=== PATIENT | female | born 1925 | race Caucasian/White ===

== ENCOUNTER 2017-01-07 10:59 | Inpatient (IN) ==
[2017-01-07] MEDS ORDERED: NS 2,000 ML IV ONE (12:16)
[2017-01-07 13:07] LABS: BASO% 0.3 % (0.0-0.8); EOS# 0.09 X1000 (0.0-0.7); EOS% 0.8 % (0.0-10.0); HEMATOCRIT 35.7 % (37.0-47.0); HEMOGLOBIN 11.9 g/dL (12.0-16.0); IMM GRAN# 0.21 X1000 (0.0-0.04); IMM GRAN% 1.8 % (0.0-0.5); LYMPH# 0.36 X1000 (1.2-3.4); MANUAL DIFF NEEDED? NO; MCH 28.1 PG (27-31); MCHC 33.3 g/dL (33-37); MCV 84.2 FL (81-99); MONO# 0.55 X1000 (0.11-0.59); MONO% 4.6 % (1.7-9.3); NEUT% 89.5 % (42.2-75.2); PLT 174 X1000 (130-400); RBC 4.24 XMIL (4.2-5.4)
[2017-01-07 13:31] LABS: ALBUMIN 3.5 g/dL (3.5-5.0); CALCIUM 8.6 mg/dL (8.8-10.2); POTASSIUM 4.5 mmol/L (3.5-5.1); TOTAL BILIRUBIN 0.16 mg/dL (0.20-1.00)
--- NOTE | 2017-01-07 13:31 | PROVIDER DOCUMENTATION ---
This chart was entered by Laisha Fernandes Scribe, acting as scribe for Vladislav Murdock MD. HPI-General Adult - General Chief Complaint: Weakness Stated Complaint: WEAKNESS,NAUSEA,NOT EATEN IN 2 DAYS Time Seen by Provider: 01/07/17 11:56 Source: patient Allergies/Adverse Reactions: Patient Allergies Allergy/AdvReac Type Severity Reaction Status Date / Time Sulfa (Sulfonamide Allergy ITCHING Verified 01/07/17 13:26 Antibiotics) Home Medications: Home Medication List Medication Instructions Recorded Confirmed Last Taken Type Aspirin 81 mg PO QAM 09/21/14 01/07/17 01/07/17 08:00 History Mirtazapine [Remeron] 30 mg PO QHS 09/21/14 01/07/17 01/06/17 08:00 History Cholecalciferol (Vitamin D3) 50,000 unit PO DIRECTED 04/09/15 01/07/17 08:00 History [Vitamin D3] Melatonin/Pyridoxine HCl (B6) 5 mg PO QHS 04/09/15 01/07/17 01/06/17 21:00 History [Melatonin 5 mg Tablet] Alprazolam [Xanax] 0.25 mg PO HS #0 tablet 04/15/15 01/07/17 01/06/17 21:00 Rx Nebivolol HCl [Bystolic] 5 mg PO QAM 08/18/15 01/07/17 01/06/17 08:00 History Acetaminophen [Tylenol] 500 mg PO Q4H PRN PRN #0 tablet 02/03/16 01/07/17 Unknown Rx Collagenase Clostridium Oint 0.5 inch TOP DAILY #0 oint 02/03/16 01/07/17 Unknown Rx [Santyl Oint] Sodium Bicarbonate 650 mg PO BID #0 tablet 02/03/16 01/07/17 01/06/17 08:00 Rx Loperamide [Imodium] 2 mg PO TID CC #90 capsule 03/26/16 01/07/17 Unknown Rx Benzonatate [Tessalon Perle] 100 mg PO PRN PRN 01/07/17 01/07/17 Unknown History Levofloxacin [Levofloxacin] 500 mg PO BID 01/07/17 01/07/17 01/06/17 20:00 History - History of Present Illness -Gen Adult Nature of Presenting Problems: Pt is 89 y/o F presents to the ED with generalized weakness and loss of appetite. Pt's family states Pt has dementia. Pt's family states Pt has not ate in 2 days. Pt's family states Pt was put on Levaquin for F by PCP. Pt states V since starting med. Location of Pain/Injury: reports: generalized Pain Radiation: reports: no radiation Quality of Pain: reports: none Severity: reports: mild Onset/Duration: reports: 2 days ago Timing: reports: still present Context/Activities at Onset: reports: light activity Modifying Factors: improves with: nothing Associated Symptoms: reports: loss of appetite, vomiting, weakness. denies: anxiety, arm pain, back/neck pain, chest pain, constipation, cough, diaphoresis , diarrhea, dizziness, EENT symptoms, fatigue, fever/chills, genitourinary problems, headaches, heartburn, joint pain, malaise, muscle aches, sinus congestion/drainage, nausea, rash, seizure, shortness of breath, sensory/motor loss, pain with inspiration, swelling/mass in abdomen, syncope, trouble walking Similar Symptoms Previously?: Yes Recently seen or treated by another doctor?: No Review of Systems - Adult - REVIEW OF SYSTEMS - ADULT Constitutional: reports: no symptoms reported Eyes: reports: no symptoms reported Ears, Nose, Mouth & Throat: reports: no symptoms reported Cardiovascular: reports: no symptoms reported Respiratory: reports: no symptoms reported Gastrointestinal: reports: vomiting. denies: abdominal pain, diarrhea, nausea Genitourinary: reports: no symptoms reported Musculoskeletal: reports: muscle weakness. denies: bone pain, joint pain, neck pain Integumentary: reports: no symptoms reported Neurological: reports: no symptoms reported Psychiatric: reports: no symptoms reported Endocrine: reports: no symptoms reported Hematologic/Lymphatic: reports: no symptoms reported Allergic/Immunologic: reports: no symptoms reported All Other Systems: Reviewed and Negative Past History - Adult - PAST MEDICAL HISTORY-ADULT Review of Records: reports: Nursing Assessment Review, Medications Reviewed, Social history reviewed & non-contributory. Major Childhood Illnesses: reports: denies history Cardiovascular: reports: cardiac disease, HTN, hyperlipidemia Respiratory: reports: denies history Gastrointestinal: reports: GI bleed Obstetrical/Gynecological: reports: uterine/ovarian cancer Genitourinary: reports: kidney disease Musculoskeletal: reports: denies history Neurological: reports: dementia Endocrine/Immune: reports: denies history Other Conditions: reports: denies history - PRIOR SURGERIES/PROCEDURES Surgical/Procedure History: reports: appendectomy, cholecystectomy, hysterectomy , other (exploratory lap) - IMMUNIZATION STATUS Childhood Immunizations: See Nurse Assessment Flu Vaccine: See Nurse Assessment - FAMILY HISTORY Family History: reviewed, not pertinent - SOCIAL HISTORY Smoking: denies Substance Use: denies Living Situation: family Physical Exam-General - PHYSICAL EXAM-ADULT Initial Vital Signs Reviewed: Yes - CONSTITUTIONAL General Appearance: appears well, alert, no apparent distress - EYES Eyes: PERRL/EOMI, pink conjunctivae - HEAD, EARS, NOSE, MOUTH & THROAT HENMT: normocephalic/atraumatic, moist mucous membranes, normal ENT inspection - NECK Neck: non-tender, full range of motion, supple, normal inspection - RESPIRATORY Respiratory: chest non-tender, lungs clear, normal breath sounds - CARDIOVASCULAR Cardiovascular: normal peripheral pulses, regular rate, rhythm - GASTROINTESTINAL (ABDOMEN) Abdominal Exam: normal bowel sounds, non tender, soft - LYMPHATIC Lymphatic: no adenopathy - MUSCULOSKELETAL Back Exam: normal inspection, no CVA tenderness, no vertebral tenderness Extremity: normal range of motion, non-tender, normal gait, normal inspection - SKIN Integumentary: normal color, normal turgor, warm/dry - NEUROLOGIC Neurologic: grossly normal - PSYCHIATRIC Psych/Mental Status: normal mood/affect Progress - PLAN OF CARE/RESULTS Progress/Plan/Lab Results: Vital Signs - 8 hr 01/07/17 11:02 Temperature 98.4 F Pulse Rate 84 Respiratory Rate 16 Blood Pressure 97/50 O2 Sat by Pulse Oximetry 96 Orders Category Date Time Status CBC WITH ELECTRONIC DIFF [HEME] Stat Lab 01/07/17 12:16 Ordered CMP [COMPREHENSIVE METABOLIC PANEL] [CHEM] Stat Lab 01/07/17 12:16 Ordered UA NIMS W/REFLEX CULT [URINALYSIS] Stat Lab 01/07/17 12:16 Uncollected 0.9% Sodium Chloride Inj [Ns] 2,000 ml Med 01/07/17 12:16 Active IV 999 mls/hr Result Diagrams: 01/07/17 12:55 01/07/17 12:55 - REASSESSMENT Reassessment #1 Status: unchanged (discussed decision to admit with her daughter) - CONSULTS/PCP/HOSPITALIST Notification #1 *Consult/PCP/Hospitalist*: Dr. Reyes Time Discussed: 14:59 Reason/Comments: Dr. Murdock consults with Dr. Reyes about admit of PT Consult Disposition: Admit Departure - Departure Date of Disposition Decision: 01/07/17 Time of Disposition Decision: 14:59 DIAGNOSIS: Renal insufficiency, Pyelonephritis Dementia Qualifiers: Dementia type: Lewy body dementia Dementia behavioral disturbance: without behavioral disturbance Qualified Code(s): G31.83 - Dementia with Lewy bodies; F02.80 - Dementia in other diseases classified elsewhere without behavioral disturbance Disposition: ADMITTED INPATIENT 09 Certified Medical Emergency: Emergent Condition: Stable Referrals and Follow-Ups: Kaleb Rodriguez MD [Primary Care Provider] - - Critical Care Note This patient required my direct & personal management of CC.: No This chart was documented by the indicated scribe, (Laisha Fernandes Scribe) and accurately reflects the services I performed and decisions made by me, Vladislav Murdock MD, as attested by the provider's signature.
[2017-01-07 13:52] LABS: URINE MICRO REVIEW NEEDED? NO; URINE SOURCE CATH
[2017-01-07 14:07] LABS: UR EPITHELIAL CELLS <10 /HPF (<10); URINE BACTERIA 4+ /HPF; URINE RBC <10 /HPF (<10); URINE WBC TNTC /HPF (<10)
[2017-01-07 14:15] LABS: BILIRUBIN URINE NEGATIVE (NEGATIVE); BLOOD URINE TRACE (NEGATIVE); COLOR YELLOW; GLUCOSE URINE NEGATIVE (NEGATIVE); SP GRAVITY URINE 1.012; TURBIDITY URINE CLEAR (CLEAR)
[2017-01-07 14:16] LABS: LEUKOCYTES URINE LARGE (NEGATIVE); NITRITE URINE NEGATIVE (NEGATIVE); PROTEIN URINE 30 mg/dL (NEGATIVE); URINE CULTURE NEEDED? YES; UROBILINOGEN URINE NORMAL (NORMAL)
[2017-01-07] MEDS ORDERED: ROCEPHIN 1 GM/NS 1 GM/50 ML IVPB IV ONE (14:57)
[2017-01-07] MEDS ORDERED: NS 1,000 ML IV ONE (14:58)
[2017-01-07 18:36] LABS: CALCIUM 7.5 mg/dL (8.8-10.2); POTASSIUM 3.8 mmol/L (3.5-5.1)
[2017-01-07] MEDS ORDERED: TESSALON PO PRN (19:20)
[2017-01-07] MEDS ORDERED: TYLENOL PO PRN (19:20)
[2017-01-07] MEDS ORDERED: NS 1,000 ML ONE (20:04)
--- NOTE | 2017-01-07 20:51 | Diag Imaging Result Doc PS360 ---
EXAM: CHEST-PORTABLE HISTORY: Shortness of breath TECHNIQUE: COMPARISON: 03/21/2016 FINDINGS: The lungs are well expanded. There is an infiltrate in the right upper lobe. The heart is not enlarged. The vessels are not distended. No pleural effusions identified. IMPRESSION: Right upper lobe pneumonia Electronically signed by Edilson Estrella 01/07/2017 8:49 PM
[2017-01-07] MEDS: CYMBALTA PO SCH (21:05)
[2017-01-07] MEDS: NS 1,000 ML IV SCH (21:05)
[2017-01-07] MEDS: CLOZARIL PO SCH (21:05)
--- NOTE | 2017-01-07 22:31 | HISTORY AND PHYSICAL ---
PRIMARY CARE PHYSICIAN: Dr. Kaleb Rodriguez. CHIEF COMPLAINT: Profound weakness. HISTORY OF PRESENT ILLNESS: An 89-year-old white female with a complicated past medical history presents for evaluation of above-mentioned symptoms. Current history of present illness began on SaturdayDecember 21. At that time patient developed significant weakness. The patient denies additional symptoms at that time but by Saturday developed a low-grade fever of 100.0. On Saturday patient developed a "wet cough." As patient's condition was deteriorating, she was seen by Dr. Rodriguez on SaturdayJanuary 01. At that time patient was diagnosed with a urinary tract infection and bronchitis. Prescription of levofloxacin was arranged. Initially patient's overall condition stabilized. Unfortunately, by Saturday patient developed nausea, vomiting, and decreased p.o. intake. She was noted to have intermittent rigors and profound weakness. Over the course of the weekend patient's overall condition continued to deteriorate. Because of her deteriorating condition, patient's family contacted Dr. Rodriguez's office this morning. Patient was referred to the emergency department. Upon arrival, a urinary tract infection was identified. Upon evaluation, patient was found to have a urinary tract infection as well as acute renal failure. Patient will be admitted to the hospital for full evaluation and management of these conditions. Of note, the patient's coughing condition has improved but not completely resolved. Prior to the patient's acute illness she walked independently with a walker. Her activity level and interaction was significantly above her current condition. PAST MEDICAL HISTORY: 1. Chronic kidney disease. 2. Lewy body dementia. 3. History of recurrent urinary tract infections. 4. Osteoporosis. 5. History of a diverticular bleed requiring total colectomy and ileostomy in September 2014. 6. Right hip fracture in early 2014 status post intertrochanteric fixation. 7. Hypertension. 8. Insomnia. 9. Ovarian cancer. CURRENT MEDICATIONS: 1. Acetaminophen 500 mg every 4 hours as needed. 2. Xanax 0.25 mg at bedtime. 3. Aspirin 81 mg daily. 4. Tessalon 100 mg 3 times daily as needed. 5. Clozaril 100 mg at bedtime. 6. Collagenase ointment daily. 7. Cymbalta 20 mg at bedtime. 8. Vitamin D2 50,000 units weekly. 9. Melatonin 5 mg at bedtime. 10. Remeron 15 mg at bedtime. 11. Bystolic 5 mg every morning. 12. Sodium bicarbonate 650 mg twice daily. ALLERGIES: Patient states she is allergic to sulfa which causes a rash. FAMILY HISTORY: Patient's mother passed in her 80s secondary to complications of chronic bronchitis. Patient's father passed in his 70s secondary to an unknown cause. SOCIAL HISTORY: Patient is a . She lived most of her life in the [place] but moved in with her daughter approximately 3 years ago. She denies tobacco, alcohol or illicit drug use. REVIEW OF SYSTEMS: A 12 point review of systems was performed. Pertinent positives and negatives noted in history present illness. PHYSICAL EXAMINATION: VITAL SIGNS: 97.7, heart rate 71, respirations 19, blood pressure is 112/59. GENERAL: Elderly, no acute distress. CARDIOVASCULAR: Regular rate and rhythm. No significant murmurs, rubs, or gallops. PULMONARY: Clear to auscultation bilaterally. ABDOMEN: Soft, nontender, nondistended. Positive bowel sounds. EXTREMITIES: Moves all extremities well. No significant clubbing, cyanosis, or edema. DERMATOLOGIC: Evaluation reveals no evidence of rash. LABORATORY DATA: White blood cell count 11.84, hemoglobin 11.9, hematocrit 35.7, platelet count is 174,000. Sodium 134, potassium 3.8, chloride 101, bicarb 20, BUN 18, creatinine 5.6, glucose 144, calcium 7.5. ASSESSMENT AND PLAN: 89-year-old white female with a complicated past medical history presents for evaluation of profound weakness. Full evaluation has revealed a right upper lobe pneumonia, urinary tract infection and acute on chronic kidney disease. The patient will be admitted to the hospital for full evaluation and management of each of these conditions. 1. Urinary tract infection-patient's urinalysis remains significantly abnormal. The patient has been treated with levofloxacin therapy without improvement. We will convert patient to Rocephin therapy. We will follow urine cultures. 2. Right upper lobe pneumonia-we will encourage incentive spirometry and aspiration precautions. We will start patient on Rocephin and azithromycin therapy. We will encourage incentive spirometry. We will follow patient's clinical course very closely. 3. Acute on chronic kidney disease-the patient's BUN creatinine are significantly elevated today. We will start patient on hydration as I suspect this is secondary to a prerenal state. If patient does not achieve significant improvement, we will consider a nephrology consultation. At this point, there is no indication for hemodialysis. 4. Hypertension-for now, we will continue patient's home medications. 5. Lewy body dementia-we will continue patient's current regimen as patient's family states she is under excellent control. 6. Profound weakness-at this point, the question is raised whether patient will be able to return home or will need rehabilitation at discharge. We will start physical therapy once patient is physically able. We will determine if further intervention is warranted. 7. Fluid, electrolytes, nutrition. Will monitor electrolytes. Normal saline at 75 mL an hour. Renal diet prophylaxis. Patient will be placed on SCDs. cc: Reginald Reyes MD
[2017-01-07] MEDS: REMERON PO SCH (22:54)
[2017-01-07] MEDS: MELATONIN PO SCH (22:54)
[2017-01-07] MEDS: XANAX PO SCH (22:55)
[2017-01-07] MEDS: ZITHROMAX 500 MG/NS 500 MG/250 ML IVPB IV SCH (23:03)
[2017-01-07] MEDS: SODIUM BICARBONATE PO SCH (23:03)
[2017-01-08 06:33] LABS: MANUAL DIFF NEEDED? NO
[2017-01-08 06:38] LABS: BASO% 0.6 % (0.0-0.8); EOS# 0.21 X1000 (0.0-0.7); EOS% 2.3 % (0.0-10.0); HEMATOCRIT 31.1 % (37.0-47.0); HEMOGLOBIN 10.1 g/dL (12.0-16.0); IMM GRAN# 0.18 X1000 (0.0-0.04); LYMPH# 0.92 X1000 (1.2-3.4); LYMPH% 10.1 % (20.5-51.1); MCHC 32.5 g/dL (33-37); MCV 86.1 FL (81-99); MONO% 6.6 % (1.7-9.3); MPV 9.1 FL (7.4-10.4); NEUT% 78.4 % (42.2-75.2); PLT 161 X1000 (130-400); RBC 3.61 XMIL (4.2-5.4)
[2017-01-08 07:25] LABS: ALBUMIN 2.8 g/dL (3.5-5.0); CALCIUM 7.8 mg/dL (8.8-10.2); POTASSIUM 3.7 mmol/L (3.5-5.1); TOTAL PROTEIN 5.5 g/dL (6.3-8.3)
[2017-01-08 07:37] LABS: TOTAL BILIRUBIN 0.11 mg/dL (0.20-1.00)
[2017-01-08] MEDS: BYSTOLIC PO SCH (08:23)
[2017-01-08] MEDS: ASPIRIN PO SCH (08:23)
[2017-01-08] MEDS: SANTYL OINT TOP SCH (08:23)
[2017-01-08] MEDS: SODIUM BICARBONATE PO SCH ×2 (08:23→20:19)
[2017-01-08] MEDS: NS 1,000 ML IV SCH (08:23)
[2017-01-08] MEDS: ROCEPHIN 1 GM/NS 1 GM/50 ML IVPB IV SCH (15:05)
[2017-01-08] MEDS: CYMBALTA PO SCH (20:19)
[2017-01-08] MEDS: CLOZARIL PO SCH (20:19)
[2017-01-08] MEDS: REMERON PO SCH (20:19)
[2017-01-08] MEDS: XANAX PO SCH (20:19)
[2017-01-08] MEDS: MELATONIN PO SCH (20:19)
--- NOTE | 2017-01-08 22:29 | PROGRESS NOTE ---
DATE: 01/08/2017 SUBJECTIVE: Overall, patient states she feels improved from yesterday. The patient's energy level is slowly improving. Her p.o. intake is minimal, but improved. Her cough has been intermittent. She denies significant shortness of breath. She denies fevers, chills, nausea, vomiting, or chest discomfort. OBJECTIVE: Vital signs: Temperature maximum 98.2 degrees, heart rate 61-90, respirations 16-20, blood pressure 109-138/46-59. General: Elderly, no acute distress. Cardiovascular: Regular rate and rhythm. No significant murmurs, rubs, or gallops. Pulmonary: Clear to auscultation bilaterally. Abdomen: Soft, nontender, nondistended. Positive bowel sounds. Extremities: Moves all extremities well. No significant clubbing, cyanosis, or edema. Dermatologic: Evaluation reveals no evidence of rash. LABORATORY DATA: White blood cell count 9.09, hemoglobin 10.1, hematocrit 31.1, platelet count 161,000. Sodium 138, potassium 3.7, chloride 107, bicarb 10, BUN 84, creatinine 5.1, glucose 100. Calcium 7.8, total bilirubin 0.11, total protein 5.5, albumin 2.8, alkaline phosphatase 75, AST 12, ALT 7. ASSESSMENT AND PLAN: 1. Urinary tract infection-the patient is currently being treated with Rocephin therapy. Urine culture is pending. We will follow this. 2. Right upper lobe pneumonia-we will continue patient on Rocephin and azithromycin therapy. We will encourage incentive spirometry and aspiration precautions. Clinically, patient is improving. 3. Acute on chronic kidney disease-patient's creatinine remains elevated above her baseline. She also is carrying gap acidosis, likely secondary to renal failure. We will continue hydration as this likely represents a prerenal state. We will follow this closely as well. Should patient condition not improve rapidly, we will consider Nephrology consultation. 4. Hypertension-patient's blood pressure is reasonably controlled on her current regimen. 5. Lewy body dementia-the patient's mentation is stable. We will continue her current regimen. 6. Profound weakness-physical therapy was initiated today. The patient likely will require rehabilitation at discharge. 7. Disposition-at this point, patient continues to require fci care in the hospital setting. We will plan discharge home once appropriate. cc: MD Kaleb Deluca MD
[2017-01-09] MEDS: ZITHROMAX 500 MG/NS 500 MG/250 ML IVPB IV SCH ×2 (00:08→23:32)
[2017-01-09] MEDS: NS 1,000 ML IV SCH ×3 (04:56→20:52)
[2017-01-09 06:35] LABS: MANUAL DIFF NEEDED? NO
[2017-01-09 06:40] LABS: BASO% 0.2 % (0.0-0.8); EOS# 0.17 X1000 (0.0-0.7); HEMATOCRIT 29.1 % (37.0-47.0); HEMOGLOBIN 9.5 g/dL (12.0-16.0); IMM GRAN% 1.2 % (0.0-0.5); LYMPH# 0.61 X1000 (1.2-3.4); LYMPH% 7.3 % (20.5-51.1); MCH 27.9 PG (27-31); MCHC 32.6 g/dL (33-37); MCV 85.3 FL (81-99); MONO# 0.65 X1000 (0.11-0.59); MONO% 7.8 % (1.7-9.3); MPV 8.9 FL (7.4-10.4); NEUT% 81.5 % (42.2-75.2); PLT 145 X1000 (130-400); RBC 3.41 XMIL (4.2-5.4)
[2017-01-09 07:11] LABS: ALBUMIN 2.5 g/dL (3.5-5.0); CALCIUM 7.6 mg/dL (8.8-10.2); POTASSIUM 3.2 mmol/L (3.5-5.1); TOTAL BILIRUBIN 0.13 mg/dL (0.20-1.00); TOTAL PROTEIN 5.3 g/dL (6.3-8.3)
[2017-01-09] MEDS: SODIUM BICARBONATE PO SCH ×2 (08:04→23:33)
[2017-01-09] MEDS: ASPIRIN PO SCH (08:04)
[2017-01-09] MEDS: SANTYL OINT TOP SCH (08:04)
[2017-01-09] MEDS: BYSTOLIC PO SCH (08:04)
[2017-01-09] MEDS: ROCEPHIN 1 GM/NS 1 GM/50 ML IVPB IV SCH (14:10)
[2017-01-09] MEDS ORDERED: KLOR-CON PO ONE (15:10)
[2017-01-09] MEDS ORDERED: SODIUM BICARBONATE PO ONE (15:13)
--- NOTE | 2017-01-09 15:30 | PROGRESS NOTE ---
DATE: 01/09/2017 SUBJECTIVE: Overall, patient continues to very slowly improve. The patient's mentation has returned to baseline. She complains of profound weakness and muscle tremors associated with ambulation/standing. Her p.o. intake is marginal. She denies significant shortness of breath, fevers, chills, nausea, vomiting, or chest discomfort. Thus far, she has tolerated IV fluids and antibiotics well. OBJECTIVE: Vital signs: T-max 98.5 degrees, heart rate 61-69, respirations 16- 20, blood pressure 98-130 over 48-77. General: Elderly, no acute distress. Cardiovascular: Regular rate and rhythm. No significant murmurs, rubs, or gallops. Pulmonary: Clear to auscultation bilaterally. Abdomen: Soft, nontender, nondistended. Positive bowel sounds. Extremities: Moves all extremities well. No significant clubbing or cyanosis. There is 1+ lower extremity edema bilaterally. Dermatology: Reveals no evidence of rash. LABORATORY DATA: White blood cell count 8.37, hemoglobin 9.5, hematocrit 29.1, platelet count 145,000. Sodium 141, potassium 3.2, chloride 112, bicarb 12, BUN 67, creatinine 4.1, glucose 118, calcium 7.6, total bilirubin 0.13, total protein 5.3, albumin 2.5, alkaline phosphatase 69, AST 12, ALT 7. ASSESSMENT AND PLAN: 1. Urinary tract infection - Urine culture revealed an E. coli sensitive to cephalosporins. We will continue Rocephin therapy. 2. Right upper lobe pneumonia - This was noted per chest x-ray. We will schedule a repeat chest x-ray in the morning. For now, we will continue Rocephin and azithromycin therapy. We will encourage incentive spirometry and practice aspiration precautions. Currently, patient is minimally symptomatic. 3. Acute on chronic kidney disease. This certainly is concerning, especially in the setting of a bicarbonate level of 12 and an anion gap of 17. Patient has achieved improvement in her creatinine from 5.6 to 4.1 since admission. For now, we will continue aggressive, but cautious hydration. We will increase her home dose of BID bicarbonate to TID. We will follow this. Should patient not achieve significant improvement over the course of the next 24-48 hours, we will consider nephrology consultation. 4. Hypertension - Patient's blood pressure remains reasonably controlled on her current regimen. 5. Lewy body dementia - At present time, symptoms are stable on her home medications. We will continue these. 6. Profound weakness - Physical therapy has been initiated. Unfortunately, her ambulatory ability is limited. Patient likely will require rehabilitation at discharge. 7. Anemia - The patient is noted to have a considerable anemia. This likely is partially secondary to hydration. We will check an anemia panel in the a.m. 8. Prophylaxis - Because of patient's extremely high fall risk and renal failure , I am hesitant to initiate Lovenox. We will continue SCDs while in bed. 9. Disposition - At this point, patient continues to require senior care care in a hospital setting. We will plan discharge home or rehab once appropriate. cc: MD Kaleb Deluca MD MTDD
[2017-01-09] MEDS: XANAX PO SCH (20:52)
[2017-01-09] MEDS: CYMBALTA PO SCH (20:52)
[2017-01-09] MEDS: MELATONIN PO SCH (20:52)
[2017-01-09] MEDS: REMERON PO SCH (20:52)
[2017-01-09] MEDS: CLOZARIL PO SCH (23:33)
[2017-01-10 06:42] LABS: MANUAL DIFF NEEDED? NO
[2017-01-10 06:53] LABS: BASO% 0.4 % (0.0-0.8); EOS# 0.21 X1000 (0.0-0.7); EOS% 2.7 % (0.0-10.0); HEMATOCRIT 28.4 % (37.0-47.0); HEMOGLOBIN 9.2 g/dL (12.0-16.0); IMM GRAN# 0.13 X1000 (0.0-0.04); IMM GRAN% 1.6 % (0.0-0.5); LYMPH# 0.67 X1000 (1.2-3.4); LYMPH% 8.5 % (20.5-51.1); MCH 27.9 PG (27-31); MCHC 32.4 g/dL (33-37); MCV 86.1 FL (81-99); MONO# 0.64 X1000 (0.11-0.59); MONO% 8.1 % (1.7-9.3); MPV 9.1 FL (7.4-10.4); NEUT% 78.7 % (42.2-75.2); PLT 143 X1000 (130-400)
[2017-01-10 07:23] LABS: ALBUMIN 2.5 g/dL (3.5-5.0); CALCIUM 7.7 mg/dL (8.8-10.2); POTASSIUM 3.5 mmol/L (3.5-5.1); TOTAL BILIRUBIN 0.12 mg/dL (0.20-1.00)
[2017-01-10 07:24] LABS: FERRITIN 310 ng/mL (13-150)
[2017-01-10] MEDS: ASPIRIN PO SCH (09:44)
[2017-01-10] MEDS: NS 1,000 ML IV SCH (09:44)
[2017-01-10] MEDS: SODIUM BICARBONATE PO SCH ×3 (09:44→16:41)
[2017-01-10] MEDS: BYSTOLIC PO SCH (09:44)
[2017-01-10] MEDS: SANTYL OINT TOP SCH (09:45)
[2017-01-10] MEDS: FOLIC ACID PO SCH (09:47)
[2017-01-10] MEDS: MACROBID PO SCH ×2 (09:47→20:32)
--- NOTE | 2017-01-10 10:25 | Diag Imaging Result Doc PS360 ---
CHEST-2 VIEWS - 01/10/2017 INDICATION: Pneumonia TECHNIQUE: COMPARISON: 01/07/2017 FINDINGS: There is slight improvement in the patchy bilateral upper lobe infiltrates, in the lateral right lung and the medial left lung apex. No new infiltrates. Heart size remains normal. No pneumothorax or large effusion. There is a stable compression fracture in the midthoracic spine. IMPRESSION: Improvement in the small bilateral infiltrates. Electronically signed by Agapito Flores 01/10/2017 10:23 AM
[2017-01-10] MEDS: XANAX PO SCH (20:33)
[2017-01-10] MEDS: CYMBALTA PO SCH (20:33)
[2017-01-10] MEDS: MELATONIN PO SCH (20:33)
[2017-01-10] MEDS: REMERON PO SCH (20:33)
[2017-01-10] MEDS: CLOZARIL PO SCH (20:34)
[2017-01-11] MEDS: NS 1,000 ML IV SCH ×2 (00:31→13:36)
[2017-01-11] MEDS: ASPIRIN PO SCH (09:32)
[2017-01-11] MEDS: FOLIC ACID PO SCH (09:32)
[2017-01-11] MEDS: BYSTOLIC PO SCH (09:32)
[2017-01-11] MEDS: MACROBID PO SCH ×2 (09:32→21:58)
[2017-01-11] MEDS: SODIUM BICARBONATE PO SCH ×3 (09:32→18:51)
[2017-01-11] MEDS: SANTYL OINT TOP SCH ×2 (09:33→17:32)
[2017-01-11] MEDS ORDERED: ZITHROMAX PO ONE (14:16)
[2017-01-11] MEDS: REMERON PO SCH (21:58)
[2017-01-11] MEDS: CYMBALTA PO SCH (21:58)
[2017-01-11] MEDS: MELATONIN PO SCH (21:58)
[2017-01-11] MEDS: XANAX PO SCH (21:58)
[2017-01-11] MEDS: CLOZARIL PO SCH (21:59)
[2017-01-12 06:42] LABS: CALCIUM 7.7 mg/dL (8.8-10.2); POTASSIUM 3.5 mmol/L (3.5-5.1)
[2017-01-12] MEDS: FOLIC ACID PO SCH (08:41)
[2017-01-12] MEDS: MACROBID PO SCH ×2 (08:41→21:07)
[2017-01-12] MEDS: ASPIRIN PO SCH (08:41)
[2017-01-12] MEDS: SODIUM BICARBONATE PO SCH ×4 (08:41→19:21)
[2017-01-12] MEDS: BYSTOLIC PO SCH (08:41)
[2017-01-12] MEDS: SANTYL OINT TOP SCH (08:53)
[2017-01-12] MEDS: CLOZARIL PO SCH (21:07)
[2017-01-12] MEDS: MELATONIN PO SCH (21:07)
[2017-01-12] MEDS: CYMBALTA PO SCH (21:07)
[2017-01-12] MEDS: REMERON PO SCH (21:07)
[2017-01-12] MEDS: XANAX PO SCH (21:08)
[2017-01-13] MEDS: MACROBID PO SCH ×2 (08:07→21:14)
[2017-01-13] MEDS: BYSTOLIC PO SCH (08:07)
[2017-01-13] MEDS: FOLIC ACID PO SCH (08:08)
[2017-01-13] MEDS: ASPIRIN PO SCH (08:08)
[2017-01-13] MEDS: SODIUM BICARBONATE PO SCH ×3 (08:08→18:10)
[2017-01-13] MEDS ORDERED: VITAMIN D PO SCH (09:00)
--- NOTE | 2017-01-13 13:51 | PROGRESS NOTE ---
DATE: 01/13/2017 SUBJECTIVE: I am familiar with patient's initial hospitalization. The last time I evaluated patient was on 01/09/2017. Since that time, it appears the patient has achieved improvement in her urinary tract infection and right upper lobe pneumonia. She no longer requires antibiotic therapy for her pneumonia. She continues Macrobid for her urinary tract infection. Her acute on chronic kidney disease continues to demonstrate improvement in creatinine. This morning patient states she feels well. There has been moderate increase in confusion. There has been no evidence of fevers, chills, nausea, vomiting, shortness of breath, or chest discomfort. OBJECTIVE: Vital signs: T-max 98.6 degrees, heart rate 66-81, respirations 14-18 blood pressure 117-137 over 49-59. General: Elderly, no acute distress. Cardiovascular: Regular rate and rhythm. No significant murmurs, rubs, or gallops. Pulmonary: Clear to auscultation bilaterally. Abdomen: Soft, nontender, nondistended. Positive bowel sounds. Extremities: Moves all extremities well. No significant clubbing or cyanosis. Patient has trace lower extremity edema bilaterally. Dermatologic: Evaluation reveals no evidence of rash. LABORATORY DATA: None. ASSESSMENT AND PLAN: 1. Urinary tract infection-recent urine cultures revealed an Escherichia coli sensitive to Macrobid. We will continue her current regimen. Because of increasing confusion, we will repeat a urinalysis today. 2. Right upper lobe pneumonia-the patient has completed azithromycin therapy. She currently is asymptomatic. We will continue to encourage incentive spirometry and practice aspiration precautions. Should patient's confusion persist, we will have a low threshold for repeated chest x-ray evaluation. 3. Acute on chronic kidney disease-as of recent evaluation, the patient had achieved improvement. We will recheck creatinine in the near future. 4. Hypertension-patient's blood pressure is reasonably controlled on her current regimen. 5. Lewy body dementia-patient has longstanding disease. We will continue her home medications. 6. Profound weakness-unfortunately, this persists. We will encourage activity. Patient likely will require rehabilitation at discharge. 7. Anemia-patient recently was diagnosed with a folic acid deficiency. We will continue her current regimen. We will recheck a CBC in the morning. 8. Acute delirium-I suspect this may be situational rather than pathologic. We will evaluate with a CBC, CMP, and urinalysis. Her vital signs at present time are stable. We will follow this closely as well. 9. Prophylaxis-at this point, the patient is not a good candidate for Lovenox secondary to her extreme fall risk. We will continue SCDs while in bed. 10. Disposition-at this point, patient continues to require correction care in the hospital setting. We will plan discharge to rehabilitation once appropriate. cc: MD Kaleb Deluca MD
[2017-01-13 19:54] LABS: URINE SOURCE CLEAN CATCH
[2017-01-13 20:02] LABS: BILIRUBIN URINE NEGATIVE (NEGATIVE); BLOOD URINE NEGATIVE (NEGATIVE); COLOR YELLOW; GLUCOSE URINE NEGATIVE (NEGATIVE); LEUKOCYTES URINE SMALL (NEGATIVE); NITRITE URINE NEGATIVE (NEGATIVE); PH URINE 5.5; PROTEIN URINE 30 mg/dL (NEGATIVE); SP GRAVITY URINE 1.013; TURBIDITY URINE CLEAR (CLEAR); UROBILINOGEN URINE NORMAL (NORMAL)
[2017-01-13 20:03] LABS: UR EPITHELIAL CELLS <10 /HPF (<10); URINE BACTERIA NEGATIVE /HPF; URINE CULTURE NEEDED? YES; URINE MICRO REVIEW NEEDED? YES; URINE RBC <10 /HPF (<10)
[2017-01-13] MEDS: REMERON PO SCH (21:13)
[2017-01-13] MEDS: CYMBALTA PO SCH (21:14)
[2017-01-13] MEDS: CLOZARIL PO SCH (21:14)
[2017-01-13] MEDS: MELATONIN PO SCH (21:14)
[2017-01-13] MEDS: XANAX PO SCH (21:17)
[2017-01-14 06:05] LABS: MANUAL DIFF NEEDED? NO
[2017-01-14 06:06] LABS: BASO% 0.5 % (0.0-0.8); EOS# 0.23 X1000 (0.0-0.7); EOS% 4.2 % (0.0-10.0); HEMATOCRIT 29.8 % (37.0-47.0); HEMOGLOBIN 9.7 g/dL (12.0-16.0); IMM GRAN% 1.8 % (0.0-0.5); LYMPH# 0.51 X1000 (1.2-3.4); LYMPH% 9.3 % (20.5-51.1); MCHC 32.6 g/dL (33-37); MCV 86.1 FL (81-99); MONO# 0.68 X1000 (0.11-0.59); MONO% 12.4 % (1.7-9.3); MPV 8.9 FL (7.4-10.4); NEUT% 71.8 % (42.2-75.2); PLT 139 X1000 (130-400); RBC 3.46 XMIL (4.2-5.4)
[2017-01-14 06:58] LABS: ALBUMIN 2.7 g/dL (3.5-5.0); CALCIUM 8.3 mg/dL (8.8-10.2); POTASSIUM 3.4 mmol/L (3.5-5.1); TOTAL BILIRUBIN 0.25 mg/dL (0.20-1.00); TOTAL PROTEIN 5.7 g/dL (6.3-8.3)
[2017-01-14] MEDS: SANTYL OINT TOP SCH (09:00)
[2017-01-14] MEDS: MACROBID PO SCH ×2 (09:10→21:32)
[2017-01-14] MEDS: BYSTOLIC PO SCH (09:10)
[2017-01-14] MEDS: SODIUM BICARBONATE PO SCH ×3 (09:10→17:54)
[2017-01-14] MEDS: FOLIC ACID PO SCH (09:10)
[2017-01-14] MEDS: ASPIRIN PO SCH (09:10)
[2017-01-14] MEDS: MELATONIN PO SCH (21:32)
[2017-01-14] MEDS: XANAX PO SCH (21:32)
[2017-01-14] MEDS: CYMBALTA PO SCH (21:32)
[2017-01-14] MEDS: CLOZARIL PO SCH (21:32)
[2017-01-14] MEDS: REMERON PO SCH (21:32)
--- NOTE | 2017-01-15 09:41 | Diag Imaging Result Doc PS360 ---
EXAM: HEAD W/O CONTRAST HISTORY: sleepiness, slurred speech TECHNIQUE: CT of the head without contrast with dose reduction (clarity.) COMMENT: There are calcifications in the left vertebral and both internal carotid arteries. There is generalized cerebral atrophy and extensive abnormal lucency in the white matter of both hemispheres particularly around the frontal horns and atria. There is also a lacune anteriorly in the basal ganglia region on the right. The paranasal sinuses are clear. The calvarium appears to be intact. Compared to the previous study of 04/09/2015 this has not changed appreciably. There is no evidence of bleed or abnormal extra-axial fluid collection. IMPRESSION: Chronic ischemic microvascular changes. No evidence of acute disease. The possibility of a small acute ischemic lesion cannot be excluded and further evaluation with MRI may be desirable. Electronically signed by Deandre Chávez 01/15/2017 9:38 AM
[2017-01-15] MEDS: SODIUM BICARBONATE PO SCH ×3 (10:34→18:09)
[2017-01-15] MEDS: MACROBID PO SCH ×2 (10:35→21:26)
[2017-01-15] MEDS: ASPIRIN PO SCH (10:35)
[2017-01-15] MEDS: FOLIC ACID PO SCH (10:35)
[2017-01-15] MEDS: BYSTOLIC PO SCH (10:35)
[2017-01-15] MEDS: SANTYL OINT TOP SCH ×2 (10:48→13:31)
[2017-01-15] MEDS: MELATONIN PO SCH (21:26)
[2017-01-15] MEDS: CLOZARIL PO SCH (21:26)
[2017-01-15] MEDS: CYMBALTA PO SCH (21:26)
[2017-01-15] MEDS: XANAX PO SCH (21:26)
[2017-01-16] MEDS: SODIUM BICARBONATE PO SCH ×3 (08:14→17:05)
[2017-01-16] MEDS: ASPIRIN PO SCH (08:14)
[2017-01-16] MEDS: BYSTOLIC PO SCH (08:14)
[2017-01-16] MEDS: FOLIC ACID PO SCH (08:14)
[2017-01-16] MEDS: MACROBID PO SCH ×2 (08:14→20:48)
[2017-01-16] MEDS: SANTYL OINT TOP SCH (16:11)
[2017-01-16] MEDS: CYMBALTA PO SCH (20:47)
[2017-01-16] MEDS: XANAX PO SCH (20:48)
[2017-01-16] MEDS: CLOZARIL PO SCH (20:48)
[2017-01-16] MEDS: MELATONIN PO SCH (20:48)
[2017-01-17 07:50] VITALS: BP 106/86
[2017-01-17] MEDS: FOLIC ACID PO SCH (09:21)
[2017-01-17] MEDS: BYSTOLIC PO SCH (09:21)
[2017-01-17] MEDS: SODIUM BICARBONATE PO SCH (09:21)
[2017-01-17] MEDS: MACROBID PO SCH (09:21)
[2017-01-17] MEDS: ASPIRIN PO SCH (09:21)
--- NOTE | 2017-01-17 10:22 | DISCHARGE SUMMARY ---
ADMISSION DATE: 01/07/2017 DISCHARGE DATE: 01/17/2017 FINAL DIAGNOSES: 1. Right upper lobe pneumonia. 2. Acute cystitis, recurrent. 3. Lewy body dementia. 4. Dehydration with azotemia. 5. Chronic kidney disease, stage 3B. 6. Ileostomy with chronic metabolic acidosis. 7. History of osteoporosis. 8. History of hypertension. HISTORY OF PRESENT ILLNESS: Mrs. Manning is an 89-year-old, , white female with a complex past medical history, who presented with profound weakness preceded by approximately a week of cough and low-grade temperature. As an outpatient, she was started on Levaquin, but she continued to be very weak, and for several days prior to admission, hardly ate or drank anything and did not get out of bed. She was brought to the emergency room for evaluation, where she was found to be somewhat lethargic, but in no distress. Vital signs were stable. Lungs were clear. Cardiac exam showed regular rate and rhythm. She had nontender abdomen with active bowel sounds and unremarkable ileostomy. IMAGING AND LABORATORY FINDINGS: She had a sodium of 130, BUN of 96, creatinine of 6.6. Chest x- ray showed right upper lobe pneumonia. Urinalysis was remarkable for increased white blood cells. HOSPITAL COURSE: This presentation was similar to previous presentations with dehydration and metabolic acidosis due to her ileostomy output. She was treated with intravenous Rocephin and azithromycin for pneumonia and the urinary tract infection. Blood cultures were subsequently negative. Urine cultures grew multiple organisms, which were felt to be contaminants. She was given vigorous IV fluid replacement and oral bicarbonate. Her electrolytes and renal function slowly but steadily improved, and she approached her baseline with a BUN of 35 and a creatinine of 2.0 several days after discontinuation of IV fluids. She completed an adequate course of antibiotics in the hospital, and was discharged without antibiotics. Her profound weakness was addressed by daily physical therapy treatments, and she did improve significantly, and yesterday walked 25 feet with a walker to the doorway and back, and also several times to the bathroom and back. Her daughter is a retired RN and exceptionally capable of caring for her at home, and I anticipate no problems. For her Lewy body dementia with behavioral abnormalities, she was continued on her home medications. She did seem to be excessively drowsy, and several days prior to admission, her mirtazapine was discontinued and she seemed to be more alert during the daytime after this, but sleep adequately at night. She was noted to be somewhat anemic. Vitamin B12 level was normal. Folic acid was low at 5.9, and she was started on folic acid replacement. She had a normal ferritin level of 310, so I doubt she is iron deficient. She is discharged home in improved condition. DISCHARGE MEDICATIONS: 1. Cymbalta 20 mg at bedtime. 2. Folic acid 1 mg daily. 3. Aspirin 81 mg q.a.m. 4. Melatonin 5 mg at bedtime. 5. Vitamin D3, 50,000 units once a week. 6. Xanax 0.25 mg at bedtime. 7. Bystolic 5 mg q.a.m. 8. Sodium bicarbonate 650 mg twice a day. 9. Clozaril 100 mg at bedtime. 10. Loperamide 2 mg 3 times daily with meals, ileostomy drainage. 11. She is to discontinue mirtazapine and levofloxacin. It should be noted that she has a very tiny ulcerated area on the tip of her right great toe, which was present on admission, and actually for the past 6 months or so has been steadily healing. The daughter requested some collagenase ointment for this, although I feel it is past the point where it really needs this. She will be continued to be followed by her home health provider. She is to return to my office in 2 weeks for followup. cc: Kaleb Rodriguez MD
== END 2017-01-17 10:32 | disposition home health service (06) ==
LOC: ED 10:59 → 3N 15:21
PROVIDERS: ADMIT Internal Medicine; ATTEND Internal Medicine

== ENCOUNTER 2017-03-23 12:49 | Inpatient (IN) ==
[2017-03-23 13:36] LABS: MANUAL DIFF NEEDED? NO
[2017-03-23 13:41] LABS: BASO% 0.3 % (0.0-0.8); EOS% 2.5 % (0.0-10.0); HEMATOCRIT 37.4 % (37.0-47.0); HEMOGLOBIN 12.5 g/dL (12.0-16.0); IMM GRAN# 0.16 X1000 (0.0-0.04); IMM GRAN% 1.3 % (0.0-0.5); LYMPH# 1.46 X1000 (1.2-3.4); LYMPH% 12.3 % (20.5-51.1); MCH 28.1 PG (27-31); MCHC 33.4 g/dL (33-37); MONO# 0.78 X1000 (0.11-0.59); MONO% 6.5 % (1.7-9.3); NEUT% 77.1 % (42.2-75.2); PLT 198 X1000 (130-400); RBC 4.45 XMIL (4.2-5.4)
[2017-03-23 14:02] LABS: ALBUMIN 3.4 g/dL (3.5-5.0); CALCIUM 9.4 mg/dL (8.8-10.2); POTASSIUM 5.5 mmol/L (3.5-5.1); TOTAL BILIRUBIN 0.19 mg/dL (0.20-1.00); TOTAL PROTEIN 7.6 g/dL (6.3-8.3)
[2017-03-23] MEDS ORDERED: NS 1,000 ML IV ONE (14:43)
--- NOTE | 2017-03-23 15:36 | Diag Imaging Result Doc PS360 ---
EXAM: FLAT/UPRIGHT ABD/1 VIEW CHEST INDICATION: And pain TECHNIQUE: 3 views COMPARISON: None. FINDINGS: There are a few metallic clips projecting over the mid abdomen and left lower quadrant. There are unremarkable bowel gas and stool patterns. There is no obstructive bowel pattern. There is no evidence of large volume free abdominal gas. There is no evidence of organomegaly. There is bronchiectasis and a chronic infiltrate involving the right upper lung zone that is approximately stable as compared to the previous study. The left lung is clear. There is no discrete pleural fluid collection or pneumothorax. The cardiomediastinal silhouette and central vasculature are grossly unremarkable. IMPRESSION: 1.No definite acute abdominal pathology by plain radiograph. 2.Stable chronic infiltrate and bronchiectasis at the right upper lung zone. Electronically signed by Mik Spann 03/23/2017 3:34 PM
--- NOTE | 2017-03-23 16:05 | PROVIDER DOCUMENTATION ---
This chart was entered by Lisha Kurtz Scribe, acting as scribe for Estuardo Liz MD. HPI-General Adult - General Chief Complaint: General Adult Stated Complaint: UNABLE TO VOID Time Seen by Provider: 03/23/17 14:29 Source: patient Allergies/Adverse Reactions: Patient Allergies Allergy/AdvReac Type Severity Reaction Status Date / Time Sulfa (Sulfonamide Allergy ITCHING Verified 03/23/17 15:04 Antibiotics) Home Medications: Home Medication List Medication Instructions Recorded Confirmed Last Taken Type Aspirin 81 mg PO QAM 09/21/14 03/23/17 03/22/17 History Cholecalciferol (Vitamin D3) 50,000 unit PO DIRECTED 04/09/15 03/23/17 History [Vitamin D3] Alprazolam [Xanax] 0.25 mg PO HS #0 tablet 04/15/15 03/23/17 03/22/17 Rx Nebivolol HCl [Bystolic] 5 mg PO QAM 08/18/15 03/23/17 03/22/17 History Sodium Bicarbonate 650 mg PO BID #0 tablet 02/03/16 03/23/17 03/22/17 Rx Clozapine 100 mg PO QHS 01/07/17 03/23/17 03/22/17 History Duloxetine [Cymbalta] 20 mg PO QHS capsule 01/16/17 03/23/17 03/22/17 Rx - History of Present Illness -Gen Adult Nature of Presenting Problems: Pt is a 89 year old female who came to the ed with a cc of generalized weakness and trouble urinating for two weeks. Pt reports she has a hx of kidney issues. Location of Pain/Injury: reports: generalized Pain Radiation: reports: no radiation Onset/Duration: reports: other (two weeks) Timing: reports: still present Context/Activities at Onset: reports: none Associated Symptoms: reports: weakness Similar Symptoms Previously?: Yes Recently seen or treated by another doctor?: No Review of Systems - Adult - REVIEW OF SYSTEMS - ADULT Constitutional: denies: chills, fever Eyes: reports: no symptoms reported Ears, Nose, Mouth & Throat: denies: nose pain, throat pain Cardiovascular: reports: no symptoms reported Respiratory: reports: no symptoms reported Gastrointestinal: reports: no symptoms reported Genitourinary: reports: urinary retention. denies: flank pain, hematuria Musculoskeletal: reports: muscle weakness. denies: joint swelling, neck pain Integumentary: reports: no symptoms reported Neurological: reports: no symptoms reported Psychiatric: reports: no symptoms reported Endocrine: reports: no symptoms reported Hematologic/Lymphatic: reports: no symptoms reported Allergic/Immunologic: reports: no symptoms reported All Other Systems: Reviewed and Negative Past History - Adult - PAST MEDICAL HISTORY-ADULT Review of Records: reports: Old Records Reviewed, Nursing Assessment Review Major Childhood Illnesses: reports: denies history Cardiovascular: reports: cardiac disease, HTN, hyperlipidemia Respiratory: reports: denies history Gastrointestinal: reports: GI bleed Obstetrical/Gynecological: reports: uterine/ovarian cancer Genitourinary: reports: kidney disease Musculoskeletal: reports: denies history Neurological: reports: dementia Endocrine/Immune: reports: denies history Other Conditions: reports: denies history - PRIOR SURGERIES/PROCEDURES Surgical/Procedure History: reports: appendectomy, cholecystectomy, hysterectomy , other (exploratory lap) - IMMUNIZATION STATUS Childhood Immunizations: See Nurse Assessment Flu Vaccine: See Nurse Assessment - FAMILY HISTORY Family History: reviewed, not pertinent Physical Exam-General - CONSTITUTIONAL General Appearance: alert, no apparent distress, slow to respond - EYES Eyes: PERRL/EOMI, pink conjunctivae - HEAD, EARS, NOSE, MOUTH & THROAT HENMT: normocephalic/atraumatic, moist mucous membranes - NECK Neck: non-tender, full range of motion - RESPIRATORY Respiratory: chest non-tender, lungs clear - CARDIOVASCULAR Cardiovascular: normal peripheral pulses, regular rate, rhythm - GASTROINTESTINAL (ABDOMEN) Abdominal Exam: normal bowel sounds, tenderness (colostomy bag) - MUSCULOSKELETAL Back Exam: normal inspection, no CVA tenderness Extremity: normal range of motion, non-tender - SKIN Integumentary: normal color, normal turgor - NEUROLOGIC Neurologic: grossly normal - PSYCHIATRIC Psych/Mental Status: normal mood/affect, normal thought content, normal thought process, oriented x 3 Progress - PLAN OF CARE/RESULTS Progress/Plan/Lab Results: Vital Signs - 8 hr 03/23/17 12:54 Temperature 97.6 F Pulse Rate 74 Respiratory Rate 20 Blood Pressure 88/65 O2 Sat by Pulse Oximetry 99 Laboratory Results - last 24 hr 03/23/17 03/23/17 13:23 13:23 WBC 11.91 H RBC 4.45 Hgb 12.5 Hct 37.4 MCV 84.0 MCH 28.1 MCHC 33.4 RDW Std Deviation 15.1 H Plt Count 198 MPV 10.0 Immature Gran % (Auto) 1.3 H Neut % (Auto) 77.1 H Lymph % (Auto) 12.3 L [place] % (Auto) 6.5 Eos % (Auto) 2.5 Baso % (Auto) 0.3 Immature Gran # (Auto) 0.16 H Neut # (Auto) 9.18 H Lymph # (Auto) 1.46 [place] # (Auto) 0.78 H Eos # (Auto) 0.30 Baso # (Auto) 0.03 Sodium 129 L Potassium 5.5 H Chloride 90 L Carbon Dioxide 13 L Anion Gap 26 BUN 128 H Creatinine 6.5 H Estimated GFR/1.73 m2 6 BUN/Creatinine Ratio 20 Glucose 189 H Calculated Osmolality 305 Calcium 9.4 Total Bilirubin 0.19 L AST 16 ALT 12 Alkaline Phosphatase 110 H Total Protein 7.6 Albumin 3.4 L Globulin 4.2 Albumin/Globulin Ratio 0.8 Orders Category Date Time Status CBC WITH DIFF [HEME] Stat Lab 03/23/17 13:23 Completed COMPREHENSIVE METABOLIC PANEL [CHEM] Stat Lab 03/23/17 13:23 Completed UA Reflex [URINALYSIS W/POSS RFLX CULT-1] [URINALYSIS] Lab 03/23/17 13:16 Uncollected Stat EKG [EKG] Stat Ther 03/23/17 14:30 Ordered Result Diagrams: 03/23/17 13:23 03/23/17 13:23 - REASSESSMENT Reassessment #1 Time Reassessed: 16:03 Status: other (Per pt's daughter, pt is DNR. Pt's clostomy is from a previous GI bleed surgery. No concerns for abd pain etc today.) - CONSULTS/PCP/HOSPITALIST Notification #1 *Consult/PCP/Hospitalist*: Dr. Levy Time Discussed: 16:00 Consult Disposition: Will see in ED, Admit Departure - Departure Date of Disposition Decision: 03/23/17 Time of Disposition Decision: 16:02 DIAGNOSIS: Acute on chronic renal failure Disposition: ADMITTED INPATIENT 09 Certified Medical Emergency: Emergent Condition: Stable Referrals and Follow-Ups: Kaleb Rodriguez MD [Primary Care Provider] - - Critical Care Note This patient required my direct & personal management of CC.: No Attestation - Physician/ KATIE Attestation Patient care was provided by Advanced Practice Provider:: No The physician spent face to face time with patient:: Yes Advanced Practice Provider documentation review:: Supervising physician onsite and consulted in the evaluation and care of this patient. The physician did have a face to face encounter with the patient. This chart was documented by the indicated scribe, (Lisha Kurtz Scribe) and accurately reflects the services I performed and decisions made by me, Estuardo Liz MD, as attested by the provider's signature.
[2017-03-23 16:21] LABS: URINE MICRO REVIEW NEEDED? NO; URINE SOURCE CLEAN CATCH
[2017-03-23 16:24] LABS: BILIRUBIN URINE NEGATIVE (NEGATIVE); BLOOD URINE TRACE (NEGATIVE); COLOR YELLOW; GLUCOSE URINE NEGATIVE (NEGATIVE); LEUKOCYTES URINE LARGE (NEGATIVE); NITRITE URINE NEGATIVE (NEGATIVE); PROTEIN URINE 30 mg/dL (NEGATIVE); SP GRAVITY URINE 1.014; TURBIDITY URINE HAZY (CLEAR); UROBILINOGEN URINE NORMAL (NORMAL)
[2017-03-23 16:25] LABS: UR EPITHELIAL CELLS <10 /HPF (<10); URINE BACTERIA 2+ /HPF; URINE CULTURE NEEDED? YES; URINE RBC <10 /HPF (<10); URINE WBC TNTC /HPF (<10)
[2017-03-23] MEDS ORDERED: ROCEPHIN 1 GM/NS 1 GM/50 ML IVPB IV ONE (16:35)
--- NOTE | 2017-03-23 16:41 | ED EKG INTERP ---
This chart was entered by Lisha Kurtz Scribe, acting as scribe for Estuardo Liz MD. EKG Interpretation - EKG Time of EKG reading by physician:: 16:23 EKG Read and Signed by:: Estuardo Liz EKG Interpretation (*Must complete 3 of following elements*): Abnormal Rate: 66 (left anerior fascicular block ) Rhythm: sinus rhythm w premature atrial complexes Attestation - Physician/ KATIE Attestation Patient care was provided by Advanced Practice Provider:: No The physician spent face to face time with patient:: Yes Advanced Practice Provider documentation review:: Supervising physician onsite and consulted in the evaluation and care of this patient. The physician did have a face to face encounter with the patient. This chart was documented by the indicated scribe, (Lisha Kurtz Scribe) and accurately reflects the services I performed and decisions made by me, Estuardo Liz MD, as attested by the provider's signature.
[2017-03-23] MEDS ORDERED: KAYEXALATE PO ONE (17:38)
--- NOTE | 2017-03-23 18:43 | HISTORY AND PHYSICAL ---
PRIMARY CARE PHYSICIAN: Dr. Kaleb Rodriguez. CHIEF COMPLAINT: Somnolence, decreased urine output. HISTORY OF PRESENT ILLNESS: An 89-year-old white female with past medical history significant for chronic kidney disease, Lewy body dementia, multiple recurring urinary tract infections, osteoporosis, hypertension, insomnia, and ovarian cancer presents for evaluation of above- mentioned symptoms. Pertinent history of present illness began in January. At that time, patient developed increasing cough and congestion. She was admitted to [facility] on 01/07/2017. At that time, patient was diagnosed with pneumonia as well as a urinary tract infection. She required prolonged hospitalization with antibiotic intervention. Ultimately, she was discharged home on 01/17/2017. Initially while at home patient did reasonably well. Within 2 weeks, however, patient's overall condition continued to decline. Since then patient has been treated with IV antibiotic intervention and Diflucan intervention for urinary tract infections. She has slowly experienced increasing weakness and somnolence. Over the course of the last 2 weeks, her condition has significantly progressed. She has had minimal p.o. intake. Her social interactions have decreased considerably. Her daughter describes decrease urine output approximately 1 episode of urination daily. There has been no evidence of fevers, chills, dysuria, hematuria, pyuria or change in her bowel movements. Because of her progressive illness, patient presented to the emergency department. Upon arrival full evaluation was pursued. Patient was found to have a recurrent urinary tract infection and profound renal failure. The patient will be admitted to the hospital for full evaluation and management of each of these conditions. Of note, patient's Remeron and metformin have recently been discontinued secondary to somnolence. She recently completed antibiotics and Diflucan therapy for a urinary tract infection. PAST MEDICAL HISTORY: 1. Chronic kidney disease. 2. Lewy body dementia. 3. History of recurrent urinary tract infections. 4. Osteoporosis. 5. History of diverticular bleed requiring total colectomy and ileostomy in September 2014. 6. Right hip fracture in early 2014 status post intratrochanteric fixation. 7. Hypertension. 8. Insomnia. 9. Ovarian cancer. CURRENT MEDICATIONS: 1. Acetaminophen 500 mg every 4 hours as needed. 2. Xanax 0.25 mg at bedtime. 3. Aspirin 81 mg daily. 4. Clozaril 100 mg at bedtime. 5. Cymbalta 20 mg at bedtime. 6. Vitamin D3 50,000 units weekly. 7. Bystolic 5 mg daily. 8. Sodium bicarbonate 650 mg twice daily. ALLERGIES: Patient states she is allergic to sulfa which causes a rash. SOCIAL HISTORY: Patient is a . She lived most of her life in the [place] but moved in with her daughter approximately 3-4 years ago. She denies tobacco, alcohol or illicit drug use. FAMILY HISTORY: Patient's mother passed in her 80s secondary to complications of chronic bronchitis. Patient's father passed in his 70s secondary to an unknown cause. REVIEW OF SYSTEMS: A 12 point review of systems was performed. Pertinent positives and negatives noted in history present illness. PHYSICAL EXAMINATION: VITAL SIGNS: Temperature 97.6 degrees, heart rate 74, respirations 20, blood pressure is 88/65. GENERAL: Chronically ill-appearing, elderly, no acute distress. HEENT: Normocephalic, atraumatic. Pupils equal, round, reactive to light. Extraocular muscles intact. Sclerae anicteric. [place] conjunctivae. Oral and nasopharynx clear without exudate. Dry mucous membranes. NECK: Supple. No lymphadenopathy. No thyromegaly. No bruits auscultated. CARDIOVASCULAR: Regular rate and rhythm. No significant murmurs, rubs, or gallops. PULMONARY: Clear to auscultation anteriorly. ABDOMEN: Soft, nontender, nondistended. Positive bowel sounds. EXTREMITIES: Moves all extremities well. No significant clubbing, cyanosis, or edema. NEUROLOGIC: Examination unable to be assessed secondary to somnolence. PSYCHOLOGIC: Examination is unable to be assessed secondary to somnolence. LABORATORY DATA: White blood cell count 11.91, hemoglobin 12.5, hematocrit 37.4, platelet count 198,000. Sodium 129, potassium 5.5, chloride 90, bicarb 13, BUN 128, creatinine 6.5, glucose 189, calcium 9.4, magnesium 2.3, total bilirubin 0.19, total protein 7.6, albumin 3.4, alkaline phosphatase 110, AST 16, ALT 12. Urinalysis revealed large leukocytes with too many to count white blood cells. Abdominal x-ray returned with no definitive acute abdominal process. Stable chronic infiltrate and bronchiectasis in the right upper lung zone. ASSESSMENT AND PLAN: 89-year-old white female with a complicated past medical history as noted presents for evaluation of increased somnolence in the setting of decrease urine output. A laboratory evaluation confirmed acute renal failure associated with a urinary tract infection. Patient will be admitted to the hospital for full evaluation and management of each of these conditions. 1. Admit to General Medicine. 2. Urinary tract infection-historically, patient's pathogens have been sensitive to Rocephin therapy. We will start IV Rocephin 1 g q.24 hours. We will follow culture data. We will check blood cultures. 3. Acute on chronic kidney disease-this is profound. I had a long discussion with patient's . As patient is not a candidate for hemodialysis, we will treat supportively with IV fluids. We will continue her oral bicarbonate. 4. Hyperkalemia-patient has a slightly elevated potassium level. EKG reveals no evidence of T- wave abnormalities. We will start hydration as noted. 5. Hyponatremia-this likely is secondary to her acute renal failure. We will hydrate as described above. 6. Metabolic acidosis-patient has a longstanding history. This likely is secondary to her chronic ileostomy. Her bicarbonate today is 13, slightly lower than her baseline. We will remain aware. 7. Increased somnolence-this likely is secondary to a combination of acute renal failure and medications. We will hold her Clozaril and Xanax. We will follow this. 8. Profound weakness-once able, we will plan to initiate physical therapy. 9. Hypertension-we will hold patient's antihypertensive agents for now. We will plan to resume these once necessary. 10. Lewy body dementia-as above, we will hold medications for now but will resume once able. 11. Prognosis-unfortunately, patient's prognosis remains guarded. Patient has a significant acute issue with her urinary tract infection and renal failure compounded by multiple chronic issues including Lewy body dementia. As she has basically been a failure to thrive since recent hospitalization in January, I am concerned in regards to her long-term ability to recover. The patient will be made a do not resuscitate level 1. We will defer further discussions to Dr. Rodriguez. 12. Fluid, electrolytes, nutrition. Will monitor electrolytes, normal saline at 75 mL an hour. Full liquid diet with aspiration precautions. 13. Prophylaxis. Patient will be placed on SCDs. cc: MD Kaleb Deluca MD
[2017-03-23] MEDS: NS 1,000 ML IV SCH (21:34)
[2017-03-23] MEDS: SODIUM BICARBONATE PO SCH (21:36)
[2017-03-23] MEDS: CYMBALTA PO SCH (21:37)
[2017-03-24 07:12] LABS: MANUAL DIFF NEEDED? NO
[2017-03-24 07:33] LABS: BASO% 0.5 % (0.0-0.8); EOS# 0.48 X1000 (0.0-0.7); EOS% 4.3 % (0.0-10.0); HEMATOCRIT 36.9 % (37.0-47.0); HEMOGLOBIN 12.4 g/dL (12.0-16.0); IMM GRAN# 0.12 X1000 (0.0-0.04); IMM GRAN% 1.1 % (0.0-0.5); LYMPH# 1.33 X1000 (1.2-3.4); LYMPH% 11.8 % (20.5-51.1); MCH 27.9 PG (27-31); MCHC 33.6 g/dL (33-37); MCV 82.9 FL (81-99); MONO# 0.69 X1000 (0.11-0.59); MONO% 6.1 % (1.7-9.3); MPV 9.7 FL (7.4-10.4); NEUT% 76.2 % (42.2-75.2); PLT 213 X1000 (130-400); RBC 4.45 XMIL (4.2-5.4)
[2017-03-24 07:51] LABS: ALBUMIN 3.4 g/dL (3.5-5.0); CALCIUM 9.9 mg/dL (8.8-10.2); POTASSIUM 4.8 mmol/L (3.5-5.1); TOTAL BILIRUBIN 0.19 mg/dL (0.20-1.00); TOTAL PROTEIN 7.4 g/dL (6.3-8.3)
[2017-03-24] MEDS: SODIUM BICARBONATE PO SCH ×2 (08:38→23:44)
[2017-03-24 09:49] LABS: INR 0.98; PROTIME 10.3 Seconds (9.2-11.7)
[2017-03-24] MEDS ORDERED: NS 250 ML ONE (12:46)
[2017-03-24] MEDS: NS 1,000 ML IV SCH (13:52)
--- NOTE | 2017-03-24 14:22 | PROGRESS NOTE ---
DATE: 03/24/2017 SUBJECTIVE: The patient was admitted yesterday with acute renal failure, urinary tract infection, hyperkalemia, and profound weakness. The patient was started on Rocephin therapy as well as cautious, but aggressive hydration. Her potassium was treated with Kayexalate. Overnight, patient did reasonably well. This morning, patient is more interactive. She has eaten a reasonable amount of breakfast. She has baseline confusion and is approaching her baseline. There has been no evidence of fevers, chills, nausea, vomiting, shortness of breath, or chest discomfort overnight. OBJECTIVE: Vital Signs: T-max 98.4 degrees, heart rate 62 to 78, respirations 13 to 18, blood pressure 88 to 120 over 50 to 75. General: Elderly in no acute distress. Cardiovascular: Regular rate and rhythm. No significant murmurs, rubs, or gallops. Pulmonary: Clear to auscultation anteriorly. Abdomen: Soft, nontender, nondistended. Positive bowel sounds. Extremities: Moves all extremities well. No significant clubbing, cyanosis, or edema. Dermatologic: Evaluation revealed no evidence of fracture. LABORATORY DATA: White blood cell count 11.26, hemoglobin 12.4, hematocrit 36.9, platelet count 213,000. PT 10.3, INR 0.98. Sodium 136, potassium 4.8, chloride 92, bicarb 15, BUN 125, creatinine 6.4, glucose 123, calcium 9.9, total bilirubin 0.19, total protein 7.4, albumin 3.4, alkaline phosphatase 112, AST 16, ALT 11. ASSESSMENT AND PLAN: 1. Urinary tract infection - Urinalysis returned grossly abnormal. We will follow up on culture data. We will continue Rocephin 1 g q. 24 hours. We will also follow blood cultures. 2. [id number] kidney disease/kidney failure - Unfortunately, patient's BUN and creatinine remain grossly elevated. I have discussed this in detail with patient's daughter. Clinically, however, patient is improving. For now, we will continue aggressive, but cautious hydration. At this point, she is not a viable candidate for hemodialysis. 3. Hyperkalemia - Patient has achieved improvement with Kayexalate. I suspect that with further hydration and anticipated improvement in renal function, this will resolve. 4. Hyponatremia - Patient has achieved improvement with hydration. 5. Metabolic acidosis - Patient has longstanding disease associated with her ileostomy. Her bicarbonate has improved to 15, approximately her baseline. 6. Increased somnolence - Patient is more interactive today. Her Clozaril and Xanax were held. We will continue treatment of her renal failure as above, likely the etiology of her somnolence. We will resume her Clozaril and Xanax tonight. 7. Profound weakness - We will encourage patient up in chair today. We will initiate physical therapy in the morning. 8. Hypertension - Blood pressure remains slightly low. We will hold her antihypertensive agents for now. 9. Lewy body dementia - We will remain aware. We will resume Clozaril as described above. 10. Prognosis - Patient's prognosis remains guarded. She is a [id number] level 1. Family is aware of her current prognosis. 11. Disposition - At this point, patient continues to require snf care in the hospital setting. We will plan discharge home once appropriate. cc: MD Kaleb Deluca MD
[2017-03-24] MEDS: ROCEPHIN 1 GM/NS 1 GM/50 ML IVPB IV SCH (18:04)
[2017-03-24] MEDS: CLOZARIL PO SCH (23:42)
[2017-03-24] MEDS: XANAX PO SCH (23:44)
[2017-03-24] MEDS: CYMBALTA PO SCH (23:44)
[2017-03-25] MEDS: NS 1,000 ML IV SCH ×2 (03:03→17:13)
[2017-03-25 06:55] LABS: MANUAL DIFF NEEDED? NO
[2017-03-25 07:21] LABS: BASO% 0.6 % (0.0-0.8); EOS# 0.39 X1000 (0.0-0.7); EOS% 4.5 % (0.0-10.0); HEMATOCRIT 30.5 % (37.0-47.0); HEMOGLOBIN 10.1 g/dL (12.0-16.0); IMM GRAN# 0.11 X1000 (0.0-0.04); IMM GRAN% 1.3 % (0.0-0.5); LYMPH# 1.15 X1000 (1.2-3.4); LYMPH% 13.2 % (20.5-51.1); MCH 27.9 PG (27-31); MCHC 33.1 g/dL (33-37); MCV 84.3 FL (81-99); MONO# 0.71 X1000 (0.11-0.59); MONO% 8.2 % (1.7-9.3); MPV 9.5 FL (7.4-10.4); NEUT% 72.2 % (42.2-75.2); PLT 164 X1000 (130-400); RBC 3.62 XMIL (4.2-5.4)
[2017-03-25 07:49] LABS: ALBUMIN 2.9 g/dL (3.5-5.0); POTASSIUM 4.3 mmol/L (3.5-5.1); TOTAL BILIRUBIN 0.11 mg/dL (0.20-1.00)
--- NOTE | 2017-03-25 08:25 | Diag Imaging Result Doc PS360 ---
CHEST-PORTABLE - 03/25/2017 INDICATION: cough TECHNIQUE: COMPARISON: 03/23/2017 FINDINGS: There is a new left PICC line with the catheter tip at the upper SVC. Stable moderately extensive infiltrate in the right upper lobe. Stable patchy atelectasis or scarring in the lung bases. No new infiltrates. Heart size remains normal. IMPRESSION: New PICC line, otherwise no change from prior. Electronically signed by Agapito Flores 03/25/2017 8:22 AM
[2017-03-25] MEDS: ASPIRIN PO SCH (10:29)
[2017-03-25] MEDS: SODIUM BICARBONATE PO SCH ×2 (10:29→20:28)
--- NOTE | 2017-03-25 15:16 | PROGRESS NOTE ---
DATE: 03/25/2017 SUBJECTIVE: Overall, the patient's condition continues to improve. The patient has baseline dementia, but is much more interactive today. Her energy level has increased. Her p.o. intake has been excellent. She does have an intermittent cough, but denies fevers, chills, nausea, vomiting, shortness of breath, or chest discomfort. OBJECTIVE: Vital Signs: T-max 98.9 degrees, heart rate 63-70, respirations 13-16, blood pressure 107-130/57-85. General: Elderly, in no acute distress. Cardiovascular: Regular rate and rhythm. No significant murmurs, rubs, or gallops. Pulmonary: Clear to auscultation bilaterally. Abdomen: Soft, nontender, nondistended. Positive bowel sounds. Extremities: Moves all extremities well. No significant clubbing, cyanosis, or edema. Dermatologic Evaluation: Reveals no evidence of rash. LABORATORY DATA: White blood cell count 8.70, hemoglobin 10.1, hematocrit 30.5, platelet count a 164,000. Sodium 137, potassium 4.3, chloride 101, bicarb 14. BUN 103, creatinine 4.9. Glucose 114. Calcium 8.0, total bilirubin 0.11, total protein 6.0, albumin 2.9, alkaline phosphatase 92. AST 18, ALT 12. Chest x-ray reveals no evidence of acute disease. ASSESSMENT AND PLAN: 1. Urinary tract infection-patient's urinalysis returned grossly abnormal. Interestingly, her culture thus far is negative. We will continue Rocephin 1 g q.24 hours. We will continue to follow blood cultures as well. 2. Acute on chronic kidney disease/kidney failure-the patient's BUN and creatinine are improving with hydration. We will continue her current hydration rate. We will remain aware. The patient is at risk for volume overload. We will follow this closely. 3. Hyperkalemia-the patient has achieved improvement with improved renal function. We will continue to follow. 4. Hyponatremia-patient has achieved resolution with normal saline fluid resuscitation. 5. Anemia-patient's hemoglobin and hematocrit have decreased since decreased since admission. This likely is dilutional. We will continue to follow. 6. Metabolic acidosis-patient has a chronic metabolic acidosis likely secondary to volume loss associated with her ileostomy. Her bicarbonate level is approximately baseline. 7. Increased somnolence-patient has achieved improvement with better renal function. We will continue to follow. 8. Profound weakness. We will encourage patient up in chair twice daily. We will initiate physical therapy today. 9. Hypertension-we will continue to hold patient's antihypertensive agents as her blood pressure is borderline low. We will plan to resume once blood pressure recovers. 10. Lewy body dementia-we will continue her home medications. PROGNOSIS: The patient's short-term prognosis has demonstrated improvement. Her long-term prognosis remains guarded. She is a do not resuscitate level 1. DISPOSITION: At this point, the patient continues to require intermediate care in the hospital setting. We will plan discharge home once appropriate. cc: MD Kaleb Deluca MD
[2017-03-25] MEDS: ROCEPHIN 1 GM/NS 1 GM/50 ML IVPB IV SCH (17:14)
[2017-03-25] MEDS: XANAX PO SCH (20:28)
[2017-03-25] MEDS: CYMBALTA PO SCH (20:28)
[2017-03-26] MEDS: CLOZARIL PO SCH (02:45)
[2017-03-26] MEDS: NS 1,000 ML IV SCH ×2 (05:52→16:15)
[2017-03-26 06:46] LABS: MANUAL DIFF NEEDED? NO
[2017-03-26 06:51] LABS: BASO% 0.6 % (0.0-0.8); EOS# 0.31 X1000 (0.0-0.7); HEMATOCRIT 30.4 % (37.0-47.0); HEMOGLOBIN 9.9 g/dL (12.0-16.0); IMM GRAN# 0.11 X1000 (0.0-0.04); IMM GRAN% 1.8 % (0.0-0.5); LYMPH# 0.82 X1000 (1.2-3.4); LYMPH% 13.2 % (20.5-51.1); MCH 27.7 PG (27-31); MCHC 32.6 g/dL (33-37); MCV 85.2 FL (81-99); MONO# 0.48 X1000 (0.11-0.59); MONO% 7.7 % (1.7-9.3); MPV 9.4 FL (7.4-10.4); NEUT% 71.7 % (42.2-75.2); PLT 140 X1000 (130-400); RBC 3.57 XMIL (4.2-5.4)
[2017-03-26 07:23] LABS: ALBUMIN 2.7 g/dL (3.5-5.0); CALCIUM 7.9 mg/dL (8.8-10.2); TOTAL BILIRUBIN 0.1 mg/dL (0.20-1.00); TOTAL PROTEIN 5.8 g/dL (6.3-8.3)
[2017-03-26] MEDS: ASPIRIN PO SCH (08:21)
[2017-03-26] MEDS: SODIUM BICARBONATE PO SCH ×3 (08:21→16:15)
[2017-03-26] MEDS: IMODIUM PO SCH ×2 (08:22→20:08)
[2017-03-26] MEDS: CYMBALTA PO SCH (20:08)
[2017-03-26] MEDS: XANAX PO SCH (20:08)
[2017-03-26] MEDS: ROZEREM PO SCH (20:08)
[2017-03-26] MEDS: PATIENT'S OWN MED PO SCH (20:10)
[2017-03-27] MEDS: NS 1,000 ML IV SCH ×2 (05:54→18:35)
[2017-03-27] MEDS: IMODIUM PO SCH ×2 (08:13→22:08)
[2017-03-27] MEDS: SODIUM BICARBONATE PO SCH ×3 (08:13→16:35)
[2017-03-27] MEDS: ASPIRIN PO SCH (08:13)
[2017-03-27] MEDS: XANAX PO SCH (22:08)
[2017-03-27] MEDS: CYMBALTA PO SCH (22:08)
[2017-03-27] MEDS: ROZEREM PO SCH (22:08)
[2017-03-27] MEDS: PATIENT'S OWN MED PO SCH (22:09)
[2017-03-28] MEDS: NS 1,000 ML IV SCH (08:36)
[2017-03-28] MEDS: IMODIUM PO SCH ×2 (08:37→21:47)
[2017-03-28] MEDS: SODIUM BICARBONATE PO SCH ×3 (08:37→16:56)
[2017-03-28] MEDS: ASPIRIN PO SCH (08:37)
[2017-03-28 09:19] LABS: CALCIUM 7.6 mg/dL (8.8-10.2); POTASSIUM 4.1 mmol/L (3.5-5.1)
[2017-03-28] MEDS ORDERED: CALMOSEPTINE OINTMENT TOP PRN (15:58)
[2017-03-28] MEDS: XANAX PO SCH (21:47)
[2017-03-28] MEDS: ROZEREM PO SCH (21:47)
[2017-03-28] MEDS: CYMBALTA PO SCH (21:47)
[2017-03-28] MEDS: PATIENT'S OWN MED PO SCH (21:48)
[2017-03-29] MEDS: NS 1,000 ML IV SCH ×2 (02:10→13:05)
[2017-03-29] MEDS: ASPIRIN PO SCH (10:35)
[2017-03-29] MEDS: SODIUM BICARBONATE PO SCH ×3 (10:35→21:12)
[2017-03-29] MEDS: IMODIUM PO SCH ×2 (10:35→21:09)
[2017-03-29] MEDS: ROZEREM PO SCH (21:10)
[2017-03-29] MEDS: CYMBALTA PO SCH (21:10)
[2017-03-29] MEDS: XANAX PO SCH (21:10)
[2017-03-29] MEDS: PATIENT'S OWN MED PO SCH (21:14)
[2017-03-30 08:21] LABS: CALCIUM 7.3 mg/dL (8.8-10.2); POTASSIUM 4.1 mmol/L (3.5-5.1); PREALBUMIN 13.2 mg/dL (20-40)
[2017-03-30] MEDS: IMODIUM PO SCH ×2 (10:36→20:33)
[2017-03-30] MEDS: SODIUM BICARBONATE PO SCH ×3 (10:36→17:55)
[2017-03-30] MEDS: ASPIRIN PO SCH (10:36)
[2017-03-30] MEDS: BENEFIBER PACKET PO SCH (10:41)
[2017-03-30] MEDS: CYMBALTA PO SCH (20:32)
[2017-03-30] MEDS: XANAX PO SCH (20:32)
[2017-03-30] MEDS: PATIENT'S OWN MED PO SCH (20:33)
[2017-03-31] MEDS: ASPIRIN PO SCH (09:35)
[2017-03-31] MEDS: BENEFIBER PACKET PO SCH (09:35)
[2017-03-31] MEDS: IMODIUM PO SCH ×2 (09:35→20:32)
[2017-03-31] MEDS: SODIUM BICARBONATE PO SCH ×3 (09:35→20:32)
[2017-03-31] MEDS: ROZEREM PO SCH (20:32)
[2017-03-31] MEDS: XANAX PO SCH (20:32)
[2017-03-31] MEDS: PATIENT'S OWN MED PO SCH (20:32)
[2017-03-31] MEDS: CYMBALTA PO SCH (20:32)
[2017-04-01] MEDS: BENEFIBER PACKET PO SCH (09:21)
[2017-04-01] MEDS: SODIUM BICARBONATE PO SCH ×2 (09:21→15:21)
[2017-04-01] MEDS: IMODIUM PO SCH ×2 (09:21→20:05)
[2017-04-01] MEDS: ASPIRIN PO SCH (09:22)
[2017-04-01] MEDS: XANAX PO SCH (20:05)
[2017-04-01] MEDS: ROZEREM PO SCH (20:05)
[2017-04-01] MEDS: CYMBALTA PO SCH (20:05)
[2017-04-02] MEDS: PATIENT'S OWN MED PO SCH (05:03)
[2017-04-02] MEDS: SODIUM BICARBONATE PO SCH ×2 (05:04→08:39)
[2017-04-02 07:38] LABS: ALBUMIN 2.2 g/dL (3.5-5.0); CALCIUM 7.5 mg/dL (8.8-10.2); POTASSIUM 4.3 mmol/L (3.5-5.1); TOTAL BILIRUBIN 0.14 mg/dL (0.20-1.00)
[2017-04-02 07:54] VITALS: BP 120/49
[2017-04-02] MEDS: BENEFIBER PACKET PO SCH (08:39)
[2017-04-02] MEDS: IMODIUM PO SCH (08:39)
[2017-04-02] MEDS: ASPIRIN PO SCH (08:39)
--- NOTE | 2017-04-02 09:27 | DISCHARGE SUMMARY ---
ADMISSION DATE: 03/23/2017 DISCHARGE DATE: 04/02/2017 FINAL DIAGNOSES: 1. Acute exacerbation of chronic kidney disease due to dehydration. 2. 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 3. Recurrent urinary tract infections. 4. Lewy body dementia with suspected Alzheimer's dementia, superimposed with behavioral problems, followed by [facility] practitioners. 5. Essential hypertension. 6. History of osteoporosis. 7. History of lower gastrointestinal bleed requiring a total colectomy in 2014. PRESENT ILLNESS: Mrs. Manning is an 89-year-old, white female with recurrent recent admissions for dehydration due to the high output of her ileostomy. She was brought to the emergency room by her family because of decreased urine output and with increasing weakness and sleepiness. She was found to be severely dehydrated with a BUN of 128, creatinine 6.5. Her baseline is approximately BUN of 40 and creatinine of 2.0. Urinalysis revealed too numerous to count white blood cells. Chest x-ray was stable with no new infiltrates. PHYSICAL EXAMINATION: Vital Signs: Revealed blood pressure of 88/65, she was chronically ill- appearing, elderly woman, in no distress. Mucous membranes were dry. Neck: Supple. Cardiac Exam: Regular rate and rhythm. Lungs: Clear bilaterally. HOSPITAL COURSE: She was given IV fluid rehydration at a reduced rate due to her age and comorbidities. She was initially treated with intravenous antibiotics, Rocephin. After 48 hours when her cultures were negative, this was discontinued. With IV fluids, her lethargy improved and she was able to get up to a chair with assistance and feed herself. She was begun on Imodium 2 mg twice a day to try to decrease her ileostomy output, but the dose was not increased to avoid excessive thickening of her output. She was also begun on some fiber. Even with physical therapy, her progress was very slow and her family felt she was too weak to take directly home. She required moderate to maximum assist of 2 to transfer and stand and able to walk only 5 feet or less with assistance. I feel she would benefit from subacute rehab and arrangements were made for her to be discharged to [facility]. DISCHARGE MEDICATIONS: Loperamide 2 mg twice a day. Melatonin 3 mg at bedtime, Ceftin ointment topically b.i.d. as needed. Benefiber packet 1 daily in any liquid, aspirin 81 mg daily. Vitamin D2 50,000 units twice a month on the and the 15th. Alprazolam 0.25 mg at bedtime, sodium bicarbonate 650 mg twice a day. Clozapine 100 mg at bedtime, Duloxetine 20 mg q.a.m. PLAN: I will continue to follow her at [facility]. cc: Kaleb Rodriguez MD
== END 2017-04-02 13:26 ==
LOC: ED 12:49 → 4N 17:41 → 3N 23:47
PROVIDERS: ADMIT Internal Medicine; ATTEND Internal Medicine